=== PATIENT | female | born 1990 | race Caucasian/White ===

== ENCOUNTER → 2018-05-21 | Outpatient (CLI) | payer OTHER | LOC: M RAD 11:00 | DX: S96.92 Laceration of unspecified muscle and tendon at ankle and foot level (principal); X58.XXXD Exposure to other specified factors, subsequent encounter; Y92.9 Unspecified place or not applicable; M25.472 Effusion, left ankle | CPT/HCPCS: 73718 ==

== ENCOUNTER 2018-06-08 07:32 | Day surgery (SDC) | payer OTHER ==
[2018-06-08] MEDS ORDERED: dexameTHASONE 4 MG/ML 1ML VIAL (J1100) As Ordered (08:15)
[2018-06-08] MEDS: LR 1,000 ML IV (08:25)
[2018-06-08] MEDS: CLINDAMYCIN 600 MG in APPROPRIATE DILUENT 1 EA IV (09:41)
[2018-06-08] MEDS: BUPIVACAINE HCL 0.5% 30 ML VIAL As Ordered (09:44)
[2018-06-08] MEDS ORDERED: MIDAZOLAM INJ 2 MG/2 ML VIAL (J2250) As Ordered (09:46)
[2018-06-08] MEDS ORDERED: PROPOFOL 200 MG/20 ML VIAL As Ordered ×5 (09:46→10:52)
[2018-06-08] MEDS ORDERED: fentaNYL 100 MCG/2 ML INJECTION (J3010) As Ordered (09:46)
[2018-06-08] MEDS ORDERED: ePHEDrine SULFATE 25 MG/5 ML(5MG/ML) SYRINGE As Ordered (09:55)
[2018-06-08] MEDS: LIDOCAINE 1% SDV INJ 30 ML VIAL As Ordered (10:00)
[2018-06-08] MEDS ORDERED: PERCOCET 5MG/325MG TAB PO (12:00)
[2018-06-08] MEDS ORDERED: ONDANSETRON 4MG/2ML VIAL (J2405) IV (12:00)
[2018-06-08] MEDS ORDERED: LR 1,000 ML IV (12:00)
[2018-06-08] MEDS ORDERED: KETOROLAC 30 MG/ML VIAL (J1885) IV (12:00)
[2018-06-08] MEDS ORDERED: fentaNYL 100 MCG/2 ML INJECTION (J3010) IV (12:00)
[2018-06-08] MEDS ORDERED: METOCLOPRAMIDE INJ 10MG/2ML VIAL (J2765) IV (12:00)
== END 2018-06-08 12:55 | disposition home or self-care (01) ==
LOC: M SDC 07:32
DX: M66.272 Spontaneous rupture of extensor tendons, left ankle and foot (principal); Z88.0 Allergy status to penicillin
CPT/HCPCS: 28208